=== PATIENT | male | born 1985 | race Caucasian/White ===

== ENCOUNTER 2016-11-07 14:20 | Emergency (ER) | payer BC, OTHER ==
[~2016-11-07] VITALS: Ht 177.8 cm; Wt 99.8 kg
[2016-11-07] MEDS ORDERED: morphine INJ 10 MG/ML 1ML (SYR OR VIAL) IM STA (14:56)
--- NOTE | 2016-11-07 15:09 | ED Upper Extremity ---
General Chief Complaint: Upper Extremity Stated Complaint: L SIDE ARM/ELBOW PAIN Nursing Triage Note: AMB TO ROOM TRIPPED AND FELL WHILE SKATING. C/O PAIN L ELBOW. Nursing Sepsis Screen: No Definite Risk Source: patient, family ([id number]) Exam Limitations: no limitations (JULEE HUMPHREYS) History of Present Illness Time seen by provider: 15:05 (JULEE HUMPHREYS) Allergies and Home Medications Allergies Coded Allergies: coconut (Verified Allergy, Unknown, 11/07/16) Home Medications Oxycodone HCl/Acetaminophen 1 Each Tablet, 1-2 EACH PO Q4H PRN for pain, #30 Ref 0 Prescribed by: JULEE HUMPHREYS on 11/07/16 1606 Past Fppfkuu-Rwahwl-Efjudx Hx Patient Social History Alcohol Use: Occasionally Uses Recreational Drug Use: No Smoking Status: Current Everyday Smoker Recent Foreign Travel: No Contact w/Someone Who Travel: No Recent Infectious Disease Expo: No (JULEE HUMPHREYS) Physical Exam Vital Signs Vital Sign - Last 12Hours 11/07/16 11/07/16 14:40 16:12 Temp 99.3 Pulse 79 Resp 18 B/P (MAP) 135/87 Pulse Ox 96 (LETHA CLINE APRN) Vital Signs Capillary Refill : Less Than 3 Seconds (JULEE HUMPHREYS) Progress/Results/Core Measures Results/Orders Blood Pressure Mean: 103 Departure Communication Progress Notes 11/11/16 @1151--patient called ER to report that the oxycodone that he was given yesterday is making him itchy. He would like to try something different. I will write a prescription for hydrocodone (which the patient states that he has taken before without problem) 1 tablet every 4 hours when necessary pain number 30. (LETHA CLINE APRN) Impression Impression: Primary Impression: Fracture of radius Disposition: 01 HOME, SELF-CARE Condition: Improved Departure-Patient Inst. Decision time for Depature: 16:04 (JULEE HUMPHREYS) Referrals: NO,LOCAL PHYSICIAN (PCP) Primary Care Physician DANN ROWAN MD Patient Instructions: Elbow Fracture (DC), Wrist Fracture (DC) Add. Discharge Instructions: All discharge instructions reviewed with patient and/or family. Voiced understanding. Medications as instructed. NO IBUPROFEN OR ALEVE. Elevate the left arm on pillows. Keep the splint clean and dry. Ice pack for 20 minute intervals as needed for pain. Arm sling as instructed. Right arm activities only until released by your physician. Follow-up with Dr. Rowan as an outpatient for recheck in the next 7 days, call first thing Wednesday morning for appointment time. Return to the emergency department for worsened pain, pain from the splint, numbness, weakness, discoloration of the fingers, or any other concerns. Scripts Oxycodone HCl/Acetaminophen (Endocet 5-325 Tablet) 1 Each Tablet 1-2 EACH PO Q4H Y for pain, #30 TAB 0 Refills Prov: JULEE HUMPHREYS 11/07/16 Work/School Note: Work Release Form Date Seen in the Emergency Department: November 07, 2016 Return to Work: November 08, 2016 Other Restrictions Listed Below: Right arm activities only until released by Dr. Rowan. JULEE HUMPHREYS November 07, 2016 15:09 LETHA CLINE APRN November 08, 2016 11:52
--- NOTE | 2016-11-07 15:14 | Diagnostic Imaging Report ---
EXAMINATION: Left wrist, 3 views. COMPARISON: None. INDICATION: 31-year-old male, fall. FINDINGS: There is no identified acute fracture or dislocation. There is no radiopaque foreign body. Joint spaces are well-preserved. There is normal bone mineralization and alignment. IMPRESSION: No identified acute bony abnormality of the left wrist. Dictated by: Dictated on workstation # [id number]
--- NOTE | 2016-11-07 15:14 | Diagnostic Imaging Report ---
EXAMINATION: Left forearm, 2 views. COMPARISON: None. HISTORY: 31-year-old male, fall. Left forearm pain. FINDINGS: There are limitations for assessment at the level of the elbow joint relating to obliquity of imaging, particularly on the lateral view. There is no obvious large elbow joint effusion. There is no identified acute fracture. There is no radiopaque foreign body. IMPRESSION: No identified acute bony abnormality of the left forearm. Dictated by: Dictated on workstation # [id number]
[2016-11-07] MEDS ORDERED: OXYC-188 PO (16:06)
[2016-11-07 16:12] VITALS: BP 130/75
== END 2016-11-07 16:15 | disposition home or self-care (01) ==
LOC: EDUNIT# 14:20 → ER 14:22
DX: S69.92XA Unspecified injury of left wrist, hand and finger(s), initial encounter (principal); L29.9 Pruritus, unspecified; T40.2X5A Adverse effect of other opioids, initial encounter; F17.210 Nicotine dependence, cigarettes, uncomplicated; W01.0XXA Fall on same level from slipping, tripping and stumbling without subsequent striking against object, initial encounter; Y93.51 Activity, roller skating (inline) and skateboarding; Y92.331 Roller skating rink as the place of occurrence of the external cause; Y99.8 Other external cause status
CPT/HCPCS: 29105; 73090; 73110; 96372